=== PATIENT | female | born 1950 | race Two or more races ===

== ENCOUNTER 2020-11-18 09:35 | Outpatient (CLI) | payer OTHER ==
[~2020-11-18 09:35] MED LIST: RELAGESIC TABL1 EACH PO
== END 2020-11-18 09:45 | disposition home or self-care (01) ==
LOC: PPH VACUNA 09:35
PROVIDERS: ATTEND Emergency Medicine Pediatric Emergency Medicine
DX: Z23 Encounter for immunization (principal)

== ENCOUNTER 2021-04-30 09:22 | Outpatient (CLI) | payer OTHER | END 2021-04-30 09:24 | disposition home or self-care (01) | LOC: RX STUDY 09:22 | PROVIDERS: ATTEND Otolaryngology Plastic Surgery within the Head & Neck | DX: R13.10 Dysphagia, unspecified (principal) ==